=== PATIENT | female | born 1995 | race Caucasian/White ===

== ENCOUNTER 2024-06-28 01:57 | Emergency (ER) | payer BC, SELFPAY ==
--- NOTE | 2024-06-28 02:15 | ED.ABDPAIN1 ---
HPI - Abdominal Pain General Chief Complaint: Weakness Stated Complaint: WEAKNESS Time Seen by Provider: 06/28/24 02:01 History of Present Illness HPI narrative: patient presents with right flank pain. Recent illness with fever and chills and COVId19+. [place] light headed and had to stop working . crampy type of pain. No nausea Related Data Home Medications ?Medication ?Instructions ?Recorded ?Confirmed escitalopram oxalate 20 mg tablet mg 06/28/24 esomeprazole magnesium 40 mg mg 06/28/24 capsule,delayed release Allergies Allergy/AdvReac Type Severity Reaction Status Date / Time Iodinated Contrast Media Allergy Severe Anaphylaxis Verified 06/28/24 02:21 iodine Allergy Severe Anaphylaxis Verified 06/28/24 02:21 Review of Systems ROS Status of ROS 10 or more systems reviewed and unremarkable except as noted in history and below PFSH PFSH Social History Little interest or pleasure in doing things: not at all Feeling down, depressed, or hopeless: not at all Exam Constitutional Vital Signs, click to edit/add: Last Vital Signs Temp 98.3 F 06/28/24 02:17 Pulse 53 L 06/28/24 02:17 Resp 16 06/28/24 02:17 BP 115/68 06/28/24 02:17 Pulse Ox 99 06/28/24 02:17 O2 Del Method Room Air 06/28/24 02:17 Common normals: no apparent distress, average body habitus, oriented x3, no limitations, healthy appearing, alert and well nourished [facility] Common normals: normocephalic and head/scalp atraumatic Respiratory Common normals: normal respiratory effort, no retractions and no use of accessory muscles Cardio Common normals: regular rate, regular rhythm, S1 normal heart sound and S2 normal heart sound GI Common normals: Normal to inspection, nondistended, normoactive bowel sounds present and soft to palpation Extremity Common normals: normal to inspection and full ROM Neuro Common normals: oriented x3, CN's II-XII intact bilaterally, moves all extremities and no focal motor deficits Psych Appearance: grossly normal Course Vital Signs Vital signs: Vital Signs Temperature 98.3 F 06/28/24 02:17 Pulse Rate 53 L 06/28/24 02:17 Respiratory Rate 16 06/28/24 02:17 Blood Pressure 115/68 06/28/24 02:17 Pulse Oximetry 99 06/28/24 02:17 Oxygen Delivery Method Room Air 06/28/24 02:17 Temperature 98.3 F 06/28/24 02:17 Pulse Rate 53 L 06/28/24 02:17 Respiratory Rate 16 06/28/24 02:17 Blood Pressure 115/68 06/28/24 02:17 Pulse Oximetry 99 06/28/24 02:17 Oxygen Delivery Method Room Air 06/28/24 02:17 MDM - Abdominal Pain MDM Narrative Medical decision making narrative: patient presents with acute abdominal crampy pain and mild cough. [place] light headed for short time. afebrile. Workup remarkable for pyuria and confirmed COVID 19+. Patient given first dose of keflex and then discharged home with a prescription for keflex Lab Data Labs: Lab Results 06/28/24 Range/Units 02:16 WBC 5.1 (4.0-11.0) 10^3/uL RBC 4.48 (4.20-5.40) 10^6/uL Hgb 12.7 (12.0-16.0) g/dL Hct 38.5 (36.0-48.0) % MCV 85.9 (81.0-99.0) fL MCH 28.3 (26.7-34.0) pg MCHC 33.0 (29.9-35.2) g/dL RDW 13.4 (11.0-15.0) % Plt Count 172 (150-450) 10^3/uL MPV 10.6 (9.5-13.5) fL Neut % (Auto) 43.5 (43.0-75.0) % Lymph % (Auto) 42.0 (20.5-60.0) % [place] % (Auto) 9.0 (1.7-12.0) % Eos % (Auto) 5.1 (0.9-7.0) % Baso % (Auto) 0.2 (0.2-2.0) % Neut # (Auto) 2.2 (1.4-6.5) 10^3/uL Lymph # (Auto) 2.1 (1.2-3.8) 10^3/uL [place] # (Auto) 0.5 (0.3-0.8) 10^3/uL Eos # (Auto) 0.3 (0.0-0.7) 10^3/uL Baso # (Auto) 0.0 (0.0-0.1) 10^3/uL Abs Immat Gran (auto) 0.01 (0.00-0.03) 10^3/uL Imm/Tot Granulo (auto) 0.2 (0.0-0.5) % Sodium 139 (136-145) mmol/L Potassium 3.5 (3.5-5.1) mmol/L Chloride 101 (98-107) mmol/L Carbon Dioxide 27.3 (21.0-32.0) mmol/L Anion Gap 14.2 BUN 14.0 (7.0-18.0) mg/dL Creatinine 0.83 (0.55-1.02) mg/dL Est GFR ( Amer) >60 (>=60) Est GFR (Non-Af Amer) >60 (>=60) BUN/Creatinine Ratio 16.9 Glucose 102 (74-106) mg/dL Lactate 0.8 (0.4-2.0) mmol/L Calcium 8.9 (8.5-10.1) mg/dL Total Bilirubin 0.4 (0.2-1.0) mg/dL AST 27 (15-37) U/L ALT 47 (14-59) U/L Alkaline Phosphatase 65 (46-116) U/L Troponin I High Sens <4.0 L (4.0-51.3) pg/mL Total Protein 7.3 (6.4-8.2) g/dL Albumin 3.7 (3.4-5.0) g/dL Globulin 3.6 g/dL Albumin/Globulin Ratio 1.0 Lipase 43.0 (16.0-77.0) U/L Urine Color Lt. yellow (YELLOW) Urine Clarity Sl cloudy (CLEAR) Urine pH 6.5 (5.0-9.0) Ur Specific [place] 1.020 (1.005-1.025) Urine Protein Negative (NEG/TRACE) mg/dL Urine Glucose (UA) Negative (NEGATIVE) mg/dL Urine Ketones Negative (NEGATIVE) mg/dL Urine Occult Blood Negative (NEGATIVE) Urine Nitrite Negative (NEGATIVE) Urine Bilirubin Negative (NEGATIVE) Urine Urobilinogen 1.0 (0.2-1.0) EU/dL Ur Leukocyte Esterase Moderate A (NEGATIVE) Urine RBC 0-2 (0-2) #/HPF Urine WBC 5-10 A (NONE SEEN) #/HPF Ur Squamous Epith Cells Many A (NONE/RARE) #/LPF Urine Crystals None seen (None Seen) #/HPF Urine Bacteria Moderate A (NONE SEEN) #/HPF Urine Casts None seen (NONE SEEN) #/LPF Urine Mucus Trace A (NONE SEEN) Ur Culture Indicated? Yes SARS-CoV-2 Ag (CV2AG) Positive A (NEGATIVE) Discharge Plan Discharge Stand Alone Forms: Work/School Release, Portal Instructions Chief Complaint: Weakness Clinical Impression: Pyuria, COVID-19 Patient Disposition: Home, Self-Care Prescriptions / Home Meds: No Action esomeprazole magnesium 40 mg capsule,delayed release(DR/EC) escitalopram oxalate 20 mg tablet Print Language: Maori Instructions: Urinary Tract Infection in Women (ED), COVID-19 (Coronavirus Disease 2019) (ED) Referrals: Physician,Non-Staff, [Primary Care Provider] - 1 week
--- NOTE | 2024-06-28 02:16 | CT_ITS ---
The [address] [address] Patient Name: CALEB WEINER MRN: [id number] date: 1995 Sex: F Assigned Patient Location: ER Current Patient Location: ER Accession/Order Number: [id number] Exam Date: 06/28/2024 02:55 Report Date: 06/28/2024 04:04 At the request of: MARY JANE SOTO Procedure: CT angio chest EXAM: CT angio chest HISTORY: chest pain/COVID 19 COMPARISON: None. TECHNIQUE: Routine CTA chest with intravenous contrast. FINDINGS: The heart size is normal. There is no pericardial fluid or thickening. There is contrast within the pulmonary arteries. There is no pulmonary embolus. The thoracic and proximal abdominal aorta are unremarkable. The great vessels off the aortic arch are unremarkable. There is no consolidation, pleural effusion or pulmonary vascular congestion. There is no pneumothorax. There are no suspicious masses or nodules within the lungs. There are no pathologically enlarged lymph nodes. There is a small hiatal hernia. The trachea, esophagus and thyroid gland are unremarkable. The liver appears fatty infiltrated. There is mild dextroscoliosis of the thoracic spine. CT/CT angio chest IMPRESSION: There is no acute cardiopulmonary process. There is no consolidation or pleural effusion. There is no pulmonary embolus. There is a small hiatal hernia. Electronically authenticated by: JUAN RODRIGUEZ Date: 06/28/2024 04:04
--- NOTE | 2024-06-28 02:16 | CT_ITS ---
[address] [address] Patient Name: CALEB WEINER MRN: [id number] date: 1995 Sex: F Assigned Patient Location: ER Current Patient Location: ER Accession/Order Number: [id number] Exam Date: 06/28/2024 02:55 Report Date: 06/28/2024 04:10 At the request of: MARY JANE SOTO Procedure: CT abdomen pelvis w con EXAM: CT abdomen pelvis w con HISTORY: abdominal pain COMPARISON: None. TECHNIQUE: Routine CT abdomen/pelvis with intravenous contrast. FINDINGS: Lower chest: Unremarkable. Liver: The liver appears fatty infiltrated. Gallbladder/biliary tree: Cholecystectomy without biliary dilatation. Pancreas: Unremarkable. Spleen: Mild splenomegaly measuring 14.0 x 5.7 x 12.7 cm in longitudinal, transverse and AP dimensions. Adrenal glands: Unremarkable. Kidneys: Unremarkable. Bowel: Nonobstructive bowel gas pattern with a moderate amount of stool within the colon. The appendix is unremarkable. There is no pericecal inflammatory reaction. There is a small hiatal hernia. The small bowel is normal caliber. Inflammation: There is no free air, free fluid or inflammatory reaction. Vasculature: The abdominal aorta and IVC are unremarkable. Lymphadenopathy: There are no pathologically enlarged lymph nodes. Pelvis: The unopacified underdistended urinary bladder is unremarkable. The uterus is unremarkable. Musculoskeletal: Slight levoscoliosis of the lumbar spine. CT/CT abdomen pelvis w con IMPRESSION: Nonobstructive bowel gas pattern with a moderate amount of stool within the colon. The appendix is unremarkable. There is no pericecal inflammatory reaction. The liver appears fatty infiltrated. Cholecystectomy without biliary dilatation. Mild splenomegaly measuring 14.0 x 5.7 x 12.7 cm. There is no free air, free fluid or inflammatory reaction. Electronically authenticated by: JUAN RODRIGUEZ Date: 06/28/2024 04:10
[2024-06-28 02:17] VITALS: BP 115/68; PULSE 53; TEMP 36.8; O2SAT 99; BMI 35.1
[2024-06-28 02:38] LABS: Basophils Percent Auto 0.2 % (0.2-2.0); Eosinophils Absolute Auto 0.3 10^3/uL (0.0-0.7); Eosinophils Percent Auto 5.1 % (0.9-7.0); Hematocrit 38.5 % (36.0-48.0); Hemoglobin 12.7 g/dL (12.0-16.0); Immature Granulocytes Abs Auto 0.01 10^3/uL (0.00-0.03); Immature Granulocytes Pct Auto 0.2 % (0.0-0.5); Lymphocytes Absolute Auto 2.1 10^3/uL (1.2-3.8); Mean Corpuscular Hemoglobin 28.3 pg (26.7-34.0); Mean Corpuscular Volume 85.9 fL (81.0-99.0); Mean Platelet Volume 10.6 fL (9.5-13.5); Monocytes Absolute Auto 0.5 10^3/uL (0.3-0.8); Neutrophils Absolute Auto 2.2 10^3/uL (1.4-6.5); Neutrophils Percent Auto 43.5 % (43.0-75.0); Platelet Count 172 10^3/uL (150-450); Red Blood Count 4.48 10^6/uL (4.20-5.40); Red Cell Distribution Width 13.4 % (11.0-15.0); White Blood Count 5.1 10^3/uL (4.0-11.0)
[2024-06-28] MEDS: 0.9 % SODIUM CHLORIDE 1,000 ML 999 ML IV (02:44)
[2024-06-28 02:45] LABS: Bilirubin Urine NEGATIVE (NEGATIVE); Blood Urine NEGATIVE (NEGATIVE); Clarity Urine SL CLOUDY (CLEAR); Color Urine LT. YELLOW (YELLOW); Glucose Urine UA NEGATIVE (NEGATIVE); Ketones Urine NEGATIVE (NEGATIVE); Leukocyte Esterase Urine MODERATE (NEGATIVE); Nitrite Urine NEGATIVE (NEGATIVE); Protein Urine NEGATIVE (NEG/TRACE); pH Urine 6.5 (5.0-9.0)
[2024-06-28 02:51] LABS: Urine Microscopic Indicated YES
[2024-06-28 02:52] LABS: Alanine Aminotransferase 47 U/L (14-59); Albumin Level 3.7 g/dL (3.4-5.0); Alkaline Phosphatase 65 U/L (46-116); Anion Gap 14.2; Aspartate Amino Transferase 27 U/L (15-37); BUN Creatinine Ratio 16.9; Bilirubin Total 0.4 mg/dL (0.2-1.0); Calcium 8.9 mg/dL (8.5-10.1); Carbon Dioxide 27.3 mmol/L (21.0-32.0); Chloride 101 mmol/L (98-107); Estimated GFR (African America >60 (>=60); Estimated GFR (Non-African Ame >60 (>=60); Globulin 3.6 g/dL; Glucose 102 mg/dL (74-106); Potassium 3.5 mmol/L (3.5-5.1); Sodium 139 mmol/L (136-145); Total Protein 7.3 g/dL (6.4-8.2)
[2024-06-28 02:54] LABS: Lactate/Lactic Acid 0.8 mmol/L (0.4-2.0)
[2024-06-28 02:55] LABS: Troponin I High Sensitivity <4.0 pg/mL (4.0-51.3)
[2024-06-28 02:57] LABS: Internal Control Within Normal Limits
[2024-06-28 02:58] LABS: SARS-CoV-2 Ag POSITIVE (NEGATIVE)
[2024-06-28 03:04] LABS: Mucus Urine TRACE (NONE SEEN)
[2024-06-28 03:05] LABS: RBC Urine 0-2 #/HPF (0-2)
[2024-06-28 03:06] LABS: Bacteria Urine MODERATE #/HPF (NONE SEEN); Cast Seen? NONE SEEN #/LPF (NONE SEEN); Crystals Seen? None Seen #/HPF (None Seen); Urine Culture Indicated YES
[2024-06-28 03:07] LABS: Squamous Epithelial Cell Urine MANY #/LPF (NONE/RARE)
[2024-06-28] MEDS: CEPHALEXIN 500 MG CAPSULE 1000 MG PO (05:41)
[2024-06-28 05:43] VITALS: BP 109/73; PULSE 73; O2SAT 97
--- NOTE | 2024-06-28 06:05 | PC.NURSE ---
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 The patient was pale and diaphoretic, states her legs were feeling very weak and she thought she may pass out. I assisted her into a room, her blood sugar was checked and was normal, Dr Moreno entered the room to assess her. She decided to check in as a patient for a full work up.
== END 2024-06-28 06:04 | disposition home or self-care (01) ==
PROVIDERS: Emergency Provider Internal Medicine
DX: U07.1 COVID-19 (principal); R82.81 Pyuria
CPT/HCPCS: 36415; 71275; 74177; 80053; 81001; 83605; 83690; 84484; 85025; 87086; 87811; 99284; Q9967